=== PATIENT | female | born 1990 | race African-American/Black ===

== ENCOUNTER 2021-10-30 19:26 | Emergency (ER) | payer MEDICAID ==
[~2021-10-30] VITALS: Ht 172.7 cm; Wt 93.2 kg
[2021-10-30 19:33] VITALS: BP 167/98
[2021-10-30] MEDS ORDERED: LIDOcaine 1% 30ml preserv. free vial IJ ONE (20:55)
[2021-10-30] MEDS ORDERED: clindamycin 150mg capsule PO ONE (20:55)
[2021-10-30] MEDS ORDERED: CLIN-97 PO (20:58)
[2021-10-30] MEDS ORDERED: ibuprofen tablet 400 MG TABLET PO ONE (21:00)
== END 2021-10-30 21:41 | disposition home or self-care (01) ==
LOC: ER 19:28
DX: L73.2 Hidradenitis suppurativa (principal); Z79.2 Long term (current) use of antibiotics
CPT/HCPCS: 99283; A6449

== ENCOUNTER 2024-04-06 10:01 | Emergency (ER) | payer BC, MEDICAID ==
[~2024-04-06] VITALS: Ht 175.3 cm; Wt 98.1 kg
[~2024-04-06 10:01] MED LIST: CLIN-97 PO
[2024-04-06 10:02] VITALS: TEMP 98.7
[2024-04-06] MEDS ORDERED: ALBU8HFA INH (11:02)
[2024-04-06] MEDS: ipratropium/albuterol 3ml nebule NEB ONE (11:12)
[2024-04-06 11:13] VITALS: PULSE 69; RESP 20; O2SAT 99
[2024-04-06 11:21] VITALS: PULSE 70; RESP 20; O2SAT 99
[2024-04-06] MEDS ORDERED: AZIT250T PO (12:01)
[2024-04-06] MEDS ORDERED: AMOX-580 PO (12:01)
[2024-04-06 12:03] VITALS: BP 142/92; PULSE 77; O2SAT 100
[2024-04-06 12:15] VITALS: RESP 18
== END 2024-04-06 12:16 | disposition home or self-care (01) ==
LOC: ER 10:02
DX: J18.9 Pneumonia, unspecified organism (principal); F12.90 Cannabis use, unspecified, uncomplicated; Z20.822 Contact with and (suspected) exposure to COVID-19
CPT/HCPCS: 36415; 71046; 87502; 87503; 87811; 94640; 94760; 99284

== ENCOUNTER 2024-04-10 10:29 | Emergency (ER) | payer BC ==
[~2024-04-10] VITALS: Ht 172.7 cm; Wt 102.8 kg
[~2024-04-10 10:29] MED LIST changes: +ALBU8HFA INH; +AMOX-580 PO; +AZIT250T PO
[2024-04-10 10:38] VITALS: BP 130/80; PULSE 80; RESP 18; TEMP 97.8; O2SAT 99
[2024-04-10] MEDS ORDERED: LACT1CAP65 PO (12:52)
[2024-04-10] MEDS ORDERED: LOPE-190 PO (12:52)
== END 2024-04-10 13:20 | disposition home or self-care (01) ==
LOC: ER 10:29
DX: J18.9 Pneumonia, unspecified organism (principal); F12.90 Cannabis use, unspecified, uncomplicated
CPT/HCPCS: 99282